=== PATIENT | female | born 1955 | race Hispanic/Latino ===

== ENCOUNTER → 2021-01-09 | Outpatient (CLI) | payer OTHER | END | disposition home or self-care (01) | LOC: RAH 14:26 | PROVIDERS: ATTEND Orthopaedic Surgery | DX: M17.12 Unilateral primary osteoarthritis, left knee (principal); M25.762 Osteophyte, left knee | CPT/HCPCS: 73700 ==

== ENCOUNTER 2021-01-30 06:36 | Observation (INO) | payer OTHER ==
[2021-01-24 13:13] LABS: BASOPHILS % (AUTO) 0.6 % (0.0-5.0); EOSINOPHILS % (AUTO) 1.9 % (0.0-8.0); HEMATOCRIT 41.8 % (36-48); LYMPHOCYTES % (AUTO) 38.7 % (21.0-51.0); MEAN CORPUSCULAR HEMOGLOBIN 28.6 pg (27.0-33.0); MEAN CORPUSCULAR HGB CONC 32.5 g/dL (32.0-36.0); MEAN CORPUSCULAR VOLUME 87.8 fL (79-99); MONOCYTES % (AUTO) 4.8 % (3.0-13.0); NEUTROPHILS % (AUTO) 53.8 % (40.0-77.0); PLATELET COUNT (AUTO) 272 K/uL (130-400); RED BLOOD CELL COUNT(AUTO) 4.76 MIL/uL (4.00-5.50); RED CELL DISTRIBUTION WIDTH 13.3 % (11.0-15.5); WHITE BLOOD COUNT (AUTO) 8.1 K/uL (4.8-10.8)
[2021-01-24 13:21] LABS: CREATININE 0.7 mg/dL (0.5-1.5); POTASSIUM 3.9 mmol/L (3.5-5.1)
[2021-01-24 13:24] LABS: INR 0.99 (0.85-1.15); PROTHROMBIN TIME 10.8 SEC (9.6-11.6)
[2021-01-24 13:25] LABS: PARTIAL THROMBOPLASTIN TIME 25.5 SEC (26.3-35.5)
[2021-01-29 10:28] VITALS: BP 163/94
[~2021-01-30] VITALS: Ht 156.2 cm; Wt 97.4 kg
[2021-01-30] VITALS (24 sets, daily range): BP systolic 135–175; BP diastolic 71–93
[2021-01-30] MEDS: CEFAZOLIN SODIUM 1 GM VIAL IVP SCH ×3 (06:00→17:32)
[~2021-01-30 06:36] MED LIST: LEVO25TA54 PO; OXYB5TAB15 PO; ROPIVICAINE 250MG+KETOROLAC 15MG+EPINEPHRINE 0.3+CLONIDINE 80 IV PRN
[2021-01-30] MEDS: LACTATED RINGERS 1000ML 1,000 ML IV SCH ×2 (08:26→13:28)
[2021-01-30] MEDS ORDERED: TRANEXAMIC ACID 1000MG/10ML ONE ×2 (10:18→10:21)
[2021-01-30] MEDS ORDERED: SUCCINYLCHOLINE CHLORIDE 20 MG/ML 10 ML VIAL ONE (10:25)
[2021-01-30] MEDS ORDERED: PROPOFOL 10 MG/ML 20ML VIAL IV ONE (10:25)
[2021-01-30] MEDS ORDERED: ROCURONIUM 10MG/1ML SYR 10 MG/ML ML ONE (10:25)
[2021-01-30] MEDS ORDERED: LIDOCAINE PF 100MG/5ML (2%) SYRINGE 5ML ONE (10:25)
[2021-01-30] MEDS ORDERED: MIDAZOLAM HCL 1 MG/ML 2ML VIAL ONE (10:29)
[2021-01-30] MEDS: ACETAMINOPHEN 500 MG TABLET PO SCH ×2 (10:30→18:17)
[2021-01-30] MEDS ORDERED: OXYCODONE HCL 5 MG TAB PO PRN (10:30)
[2021-01-30] MEDS ORDERED: HYDROCODONE/ACETAMINOPHEN 5/325 MG TAB PO PRN (10:30)
[2021-01-30] MEDS ORDERED: ONDANSETRON 4MG INJ IVP PRN (10:30)
[2021-01-30] MEDS ORDERED: FENTANYL CITRATE PF 50 MCG/1 ML 2ML VIAL ONE ×2 (11:12→13:30)
[2021-01-30] MEDS: TRAMADOL HCL 50 MG TABLET PO SCH ×3 (12:00→23:18)
[2021-01-30] MEDS ORDERED: ONDANSETRON 4MG INJ ONE (12:57)
[2021-01-30] MEDS ORDERED: GLYCOPYRROLATE 1 MG/5 ML SYRINGE ONE (12:57)
[2021-01-30] MEDS ORDERED: NEOSTIGMINE 5MG/5ML SYR IV ONE (12:57)
[2021-01-30] MEDS ORDERED: MEPERIDINE-PF 25 MG/ML SYG ONE ×2 (13:40→13:50)
[2021-01-30] MEDS: 0.9%NACL 1000ML 1,000 ML IV SCH ×2 (14:09→20:30)
[2021-01-30] MEDS: MORPHINE 4 MG SYG IVP PRN ×2 (15:11→20:48)
[2021-01-30] MEDS ORDERED: CEFAZOLIN SODIUM 1 GM VIAL IVP SCH (15:30)
[2021-01-30] MEDS: OXYBUTYNIN CHLORIDE 5 MG TABLET PO SCH (19:48)
[2021-01-30] MEDS: CELECOXIB 200 MG CAP PO SCH (19:48)
[2021-01-30] MEDS: FAMOTIDINE 20MG TAB PO SCH (19:48)
[2021-01-30] MEDS ORDERED: ASPIRIN 81 MG EC TAB PO SCH (21:00)
[2021-01-31] MEDS: CEFAZOLIN SODIUM 1 GM VIAL IVP SCH (02:27)
[2021-01-31] MEDS: ACETAMINOPHEN 500 MG TABLET PO SCH ×3 (02:28→17:48)
[2021-01-31] MEDS ORDERED: MAG/ALUM/SIMETH 30 ML UDCUP PO PRN (03:00)
[2021-01-31 03:18] LABS: HEMATOCRIT 39.1 % (36-48); MEAN CORPUSCULAR HEMOGLOBIN 28.4 pg (27.0-33.0); MEAN CORPUSCULAR HGB CONC 32.2 g/dL (32.0-36.0); MEAN CORPUSCULAR VOLUME 88.1 fL (79-99); RED BLOOD CELL COUNT(AUTO) 4.44 MIL/uL (4.00-5.50); RED CELL DISTRIBUTION WIDTH 13.2 % (11.0-15.5); WHITE BLOOD COUNT (AUTO) 13.9 K/uL (4.8-10.8)
[2021-01-31 03:37] LABS: CARBON DIOXIDE 25 mmol/L (21-32); CHLORIDE 102 mmol/L (101-111); CREATINE KINASE, TOTAL 217 U/L (21-232); CREATININE 0.7 mg/dL (0.5-1.5); GLOMERULAR FILTR. RATE CALC 89 mL/min (>60); GLUCOSE,RANDOM 138 mg/dL (70-105); MYOGLOBIN 112 ng/mL (10-92); SODIUM SERUM 134 mmol/L (136-145); TROPONIN I < 0.04 ng/mL (0.00-0.06); UREA NITROGEN, BLOOD 9 mg/dL (7-18)
[2021-01-31 03:45] VITALS: BP 155/92
[2021-01-31] MEDS: 0.9%NACL 1000ML 1,000 ML IV SCH (06:30)
[2021-01-31] MEDS: TRAMADOL HCL 50 MG TABLET PO SCH ×2 (06:38→07:43)
[2021-01-31] MEDS: LEVOTHYROXINE 25 MCG TABLET PO SCH (06:39)
[2021-01-31 08:00] VITALS: BP 170/89
[2021-01-31] MEDS ORDERED: KETOROLAC 15MG/ML VIAL (15MG/ML) IV SCH (08:30)
[2021-01-31] MEDS: DULOXETINE HCL 30 MG CAP PO SCH (08:57)
[2021-01-31] MEDS: CELECOXIB 200 MG CAP PO SCH ×2 (08:57→19:25)
[2021-01-31] MEDS: POLYETHYLENE GLYCOL 3350 17 GM POWD.PACK PO SCH (08:57)
[2021-01-31] MEDS: GABAPENTIN 100 MG CAPSULE PO SCH ×3 (08:57→19:25)
[2021-01-31] MEDS: FAMOTIDINE 20MG TAB PO SCH ×2 (08:57→19:25)
[2021-01-31] MEDS: OXYBUTYNIN CHLORIDE 5 MG TABLET PO SCH ×2 (08:57→19:25)
[2021-01-31] MEDS: ENOXAPARIN SODIUM 30 MG/0.3 ML SQ SCH (08:58)
[2021-01-31 11:49] VITALS: BP 145/81
[2021-01-31 14:36] LABS: APPEARANCE,URINE Clear (CLEAR); BILIRUBIN,URINE Negative (NEGATIVE); COLOR,URINE Yellow (YELLOW); GLUCOSE, URINE (UA) Negative (NEGATIVE); KETONES,URINE Trace mg/dL (NEGATIVE); LEUKOCYTE ESTERASE ,URINE Trace (NEGATIVE); NITRATE,URINE Negative (NEGATIVE); OCCULT BLOOD,URINE Trace (NEGATIVE); PH,URINE 6.5 (5.0-8.0); PROTEIN,URINE Trace mg/dL (NEGATIVE)
[2021-01-31 15:01] LABS: BACTERIA,URINE Rare /HPF (None Seen); RBC,URINE 0-1 /HPF (0-1); SQUAMOUS EPITHELIAL CELL,UR Few /HPF (0-2); TRANSITIONAL EPI CELLS,URINE Few /HPF (None Seen)
[2021-01-31 16:00] VITALS: BP 134/87
[2021-01-31] MEDS: CEFTRIAXONE 1G VIAL IVP SCH (17:47)
[2021-01-31 19:52] VITALS: BP 123/70
[2021-02-01 00:04] VITALS: BP 121/69
[2021-02-01] MEDS: ACETAMINOPHEN 500 MG TABLET PO SCH ×2 (01:41→09:46)
[2021-02-01 04:24] VITALS: BP 136/73
[2021-02-01] MEDS: LEVOTHYROXINE 25 MCG TABLET PO SCH (05:02)
[2021-02-01 05:31] LABS: BASOPHILS % (AUTO) 0.4 % (0.0-5.0); EOSINOPHILS % (AUTO) 0.7 % (0.0-8.0); HEMATOCRIT 33.6 % (36-48); MEAN CORPUSCULAR HEMOGLOBIN 28.1 pg (27.0-33.0); MEAN CORPUSCULAR HGB CONC 32.7 g/dL (32.0-36.0); MEAN CORPUSCULAR VOLUME 85.7 fL (79-99); MONOCYTES % (AUTO) 7.3 % (3.0-13.0); NEUTROPHILS % (AUTO) 72.1 % (40.0-77.0); PLATELET COUNT (AUTO) 234 K/uL (130-400); RED BLOOD CELL COUNT(AUTO) 3.92 MIL/uL (4.00-5.50); WHITE BLOOD COUNT (AUTO) 10.9 K/uL (4.8-10.8)
[2021-02-01 05:53] LABS: CREATININE 0.7 mg/dL (0.5-1.5); POTASSIUM 3.7 mmol/L (3.5-5.1)
[2021-02-01 08:00] VITALS: BP 129/78
[2021-02-01] MEDS: ENOXAPARIN SODIUM 30 MG/0.3 ML SQ SCH (09:45)
[2021-02-01] MEDS: POLYETHYLENE GLYCOL 3350 17 GM POWD.PACK PO SCH (09:45)
[2021-02-01] MEDS: CELECOXIB 200 MG CAP PO SCH (09:46)
[2021-02-01] MEDS: OXYBUTYNIN CHLORIDE 5 MG TABLET PO SCH (09:46)
[2021-02-01] MEDS: DULOXETINE HCL 30 MG CAP PO SCH (09:46)
[2021-02-01] MEDS: GABAPENTIN 100 MG CAPSULE PO SCH ×2 (09:46→13:27)
[2021-02-01] MEDS: FAMOTIDINE 20MG TAB PO SCH (09:46)
[2021-02-01] MEDS: MORPHINE 4 MG SYG IVP PRN (09:47)
[2021-02-01 12:03] VITALS: BP 120/67
[2021-02-01 16:00] VITALS: BP 140/73
[2021-02-01] MEDS: CEFTRIAXONE 1G VIAL IVP SCH (17:30)
[2021-02-02] MEDS ORDERED: BISACODYL 10 MG SUPP.RECT RC PRN (10:30)
== END 2021-02-01 17:50 ==
LOC: DAH 06:36 → DAHIP 06:37 → DAH 07:37 → 4BH 14:29
PROVIDERS: ADMIT Orthopaedic Surgery; ATTEND Orthopaedic Surgery
DX: M17.12 Unilateral primary osteoarthritis, left knee (principal); Z20.822 Contact with and (suspected) exposure to COVID-19; M25.561 Pain in right knee; D72.829 Elevated white blood cell count, unspecified; R07.89 Other chest pain; E03.9 Hypothyroidism, unspecified; E66.9 Obesity, unspecified; K21.9 Gastro-esophageal reflux disease without esophagitis; N39.0 Urinary tract infection, site not specified; Z79.82 Long term (current) use of aspirin; Z68.39 Body mass index [BMI] 39.0-39.9, adult
CPT/HCPCS: 27446; 36415 ×3; 71045; 73502; 73560 ×2; 80048 ×3; 81001; 82550; 83874; 83880; 84145; 84484; 85025 ×2; 85027; 85610; 85730; 87088; 87635; 87641; 93005; 96361; 96372 ×2; 96374; 96375 ×2; 96376 ×3; 97039 ×4; 97116 ×3; 97161; 97530 ×3; A4215; A4221; A4222; A4223; A4600; A4649 ×4; A4663; A4930 ×2; A6212; A9272; C1776; C9803; G0378 ×50; G8979; G8980; G8981; G8982; G8983; J0171; J0330; J0690 ×3; J0696 ×2; J0735; J1650 ×2; J1885 ×2; J2001; J2175 ×2; J2250; J2270 ×4; J2405 ×2; J2704; J2710; J2795; J3010 ×2; J3490 ×3; J7120 ×2; S2900

== ENCOUNTER → 2023-08-06 | Outpatient (CLI) | payer OTHER ==
[~2023-08-06] MED LIST changes: -OXYB5TAB15 PO; +OXYB5TAB20 PO; -ROPIVICAINE 250MG+KETOROLAC 15MG+EPINEPHRINE 0.3+CLONIDINE 80 IV PRN
== END | disposition home or self-care (01) ==
LOC: RAH 13:38
PROVIDERS: ATTEND Family Medicine
DX: G45.9 Transient cerebral ischemic attack, unspecified (principal); R20.0 Anesthesia of skin; R42 Dizziness and giddiness
CPT/HCPCS: 93880

== ENCOUNTER → 2024-12-30 | Outpatient (CLI) | payer OTHER ==
--- NOTE | 2025-01-07 08:26 | HMCIMG ---
STUDY PERFORMED: BD Bone Density DEXA Axial Skeleton TECHNIQUE: [employer] Dual Energy X-ray absorptiometry (DEXA) COMPARISON: None available. FINDINGS: Lumbar Spine L1-L4 Density(g/cm2): 1.077 T-score: 0.3 Z-score: 2.4 Left Femoral Neck Density(g/cm2): 0.674 T-score: -1.7 Z-score: 0.1 Total Proximal Femur Density(g/cm2): 0.937 T-score: -0.2 Z-score: 1.3 INTERPRETATION: The bone mineral density in the lumbar spine is in the normal range. The bone mineral density of the left hip is in the osteopenia range. COMMENTS: T-scores are a means of evaluating bone mineral density relative to young adult population and are defined as the number of standard deviations of the mean. T-scores at or above -1.0 are considered normal. T-scores between -1.0 and -2.5 are consistent with osteopenia. T-scores at or below -2.5 are consistent with osteoporosis. T-score values below -2.0 are thought to be associated with an increased risk of fracture. Z-scores are related to age-matched controls. The study does not distinguish osteoporosis from other causes of decreased bone density such as osteomalacia or multiple myeloma. Therefore, if clinically indicated or Z-scores are less than -2.0, additional metabolic studies may be appropriate. RECOMMENDATIONS: National Osteoporosis Foundation (NOF) guidelines recommend initiating therapy to reduce fracture risk in women with BMD: T-Score below -2 SD T-Score Below -1.5 with other risks factors present NOF guidelines recommend all people with T score of -2.5 and below (osteoporosis) consider taken osteoporosis medication. The NOF recommends adults under age 50 need 1,000 mg of calcium and 400-800 IU of vitamin D daily. Adults 50 and over need 1,200 mg of calcium and 800-1000 IU of vitamin D daily. Effective therapies for the prevention of osteoporosis include bisphosphonates (Fosamax and Actonel) and Evista. Hormone therapy may be an option based on review of risks and benefit of treatment. People with diagnosed cases of osteoporosis or at high risk for fracture should have regular bone mineral density tests. For patients eligible for Medicare, routine testing is allowed once every 2 years. The testing frequency can be increased to one year for patients who have rapidly progressing disease, those who are receiving or discontinuing medical therapy to restore bone mass, or have additional risk factors. /Alto
== END | disposition home or self-care (01) ==
LOC: RAH 08:26
PROVIDERS: ATTEND Internal Medicine
DX: M85.89 Other specified disorders of bone density and structure, multiple sites (principal); Z78.0 Asymptomatic menopausal state
CPT/HCPCS: 77080